=== PATIENT | male | born 1990 ===

== ENCOUNTER 2016-02-29 19:36 | Emergency (ER) | payer OTHER ==
[2016-02-29 21:16] LABS: URINE BILIRUBIN NEGATIVE (NEGATIVE); URINE BLOOD 3+ (NEGATIVE); URINE GLUCOSE (UA) NEGATIVE (NEGATIVE); URINE LEUKOCYTE ESTERASE TRACE (NEGATIVE); URINE NITRITE NEGATIVE (NEGATIVE); URINE PROTEIN NEGATIVE (NEGATIVE)
[2016-02-29 21:17] LABS: URINE APPEARANCE CLEAR; URINE COLOR AMBER; URINE UROBILINOGEN 4 mg/dL (0-1 mg/dl)
[2016-02-29 21:24] LABS: URINE BACTERIA FEW; URINE EPITHELIAL CELLS 0-2 /hpf; URINE RBC 50-60 /hpf; URINE WBC NEG /hpf
[2016-02-29 21:35] LABS: ABSOLUTE NEUTROPHIL COUNT 4.6 K/mm3 (1.8-7.7); BASO # 0.1 K/mm3 (0.0-0.2); BASO % 0.7 % (0.2-1.0); EOS # 0.2 (0.0-0.5); EOS % 1.8 % (0.9-2.9); HEMATOCRIT 43.1 % (32.0-52.0); HEMOGLOBIN 15.4 gm/l (14.0-18.0); IMM NEUT # 0.1 K/mm3 (0-0.2); IMM NEUT% 0.9 % (0-1); LYMPH # 3.4 (1.0-4.8); LYMPH % 38.7 % (15-45); MEAN CELL VOLUME 82.7 fl (80.0-94.0); MEAN CORPUSCULAR HEMOGLOBIN 29.6 pg (27.0-31.0); MEAN CORPUSCULAR HGB CONC 35.7 g/dl (33.0-37.0); MEAN PLATELET VOLUME 9.7 fl (7.4-10.4); MONO # 0.5 (0.0-0.8); MONO % 6.1 % (4-12); NEUT % 51.8 % (43-75); PLATELET COUNT 345 K/mm3 (130-400); RED CELL DISTRIBUTION WIDTH 11.9 % (11.5-14.5)
[2016-02-29 21:49] LABS: INR 1.03; PROTHROMBIN TIME 10.8 SECONDS (9.3-11.4)
[2016-02-29 21:53] LABS: ALB/GLOB RATIO 1.6 (>1.0); ALBUMIN 4.4 gm/dL (3.5-5.7); ALT/SGPT 8 U/L (7-52); BLOOD UREA NITROGEN 13 mg/dL (7-25); BUN/CREATININE RATIO 14 (6-20); C-REACTIVE PROTEIN < 0.3 mg/dl (<1.0); CALCIUM 9.5 mg/dL (8.6-10.3); GLOMERULAR FILTRATION RATE 104 mL/min (60-116)
--- NOTE | 2016-03-01 08:12 | RAD ---
CHEST 2 VIEWS HISTORY: Transient fever and cough. Frontal and lateral chest radiographs dated 02/29/2016. COMPARISON: None. FINDINGS: FOCAL AIRSPACE OPACITY: No gross airspace consolidation. PLEURAL EFFUSION: None. CARDIOMEDIASTINAL SILHOUETTE: Nonenlarged. PNEUMOTHORAX: None identified. OSSEOUS STRUCTURES: No grossly destructive lesions. IMPRESSION: No acute cardiopulmonary process noted.
== END 2016-02-29 22:42 | disposition home or self-care (01) ==
LOC: ED 19:36
DX: R05 Cough (principal); R31.9 Hematuria, unspecified; F17.210 Nicotine dependence, cigarettes, uncomplicated

== ENCOUNTER 2016-03-05 16:27 | Emergency (ER) | payer OTHER ==
[2016-03-05] MEDS ORDERED: IBUPROFEN 800 MG TABLET ONE (16:35)
--- NOTE | 2016-03-05 18:16 | RAD ---
CHEST 2 VIEWS HISTORY: Cough x3 days. Frontal and lateral chest radiographs dated 03/05/2016. COMPARISON: 02/29/2016 FINDINGS: FOCAL AIRSPACE OPACITY: No gross airspace consolidation. PLEURAL EFFUSION: None. CARDIOMEDIASTINAL SILHOUETTE: Nonenlarged. PNEUMOTHORAX: None identified. OSSEOUS STRUCTURES: No grossly destructive lesions. IMPRESSION: No acute cardiopulmonary process noted.
[2016-03-05 19:03] LABS: SPECIFIC GRAVITY 1.015 (1.001-1.030); URINE BILIRUBIN NEGATIVE (NEGATIVE); URINE BLOOD 4+ (NEGATIVE); URINE GLUCOSE (UA) NEGATIVE (NEGATIVE); URINE LEUKOCYTE ESTERASE TRACE (NEGATIVE); URINE NITRITE NEGATIVE (NEGATIVE); URINE PROTEIN 1+ (NEGATIVE); URINE UROBILINOGEN 1 mg/dL (0-1 mg/dl)
[2016-03-05 19:04] LABS: URINE APPEARANCE CLOUDY; URINE COLOR BROWN
[2016-03-05 19:14] LABS: URINE BACTERIA 1+; URINE RBC >100 /hpf; URINE WBC NEG /hpf
== END 2016-03-05 19:27 | disposition home or self-care (01) ==
LOC: ED 16:27
DX: J09.X2 Influenza due to identified novel influenza A virus with other respiratory manifestations (principal); R31.9 Hematuria, unspecified; R50.9 Fever, unspecified; R11.2 Nausea with vomiting, unspecified
CPT/HCPCS: 87086; 87880; 81001; 71020; 87804; 99283 ×2; A9270